=== PATIENT | male | born 1965 | race Caucasian/White ===

== ENCOUNTER 2019-05-14 07:22 | Day surgery (SDC) | payer BC ==
[2019-05-13 13:40] VITALS: BMI 27.1
[2019-05-14 13:31] VITALS: TEMP 97.7
[2019-05-14 13:33] VITALS: BP 131/87; PULSE 72
--- NOTE | 2019-05-17 16:49 | PATH ---
Surgical Pathology Report Patient Name: ASH LUGO [facility]. Rec. #: [id number] /Age/Gender: 1965 (Age: 53) / M Account: [id number] Location: [facility]-ENDOSCOPY Taken: 05/14/2019 Received: 05/14/2019 Reported: 05/17/2019 Physicians: Darryl Alanis M.D. Specimen(s) Received A: CECAL POLYPS B: ASCENDING COLON POLYP C: DESCENDING COLON POLYP Clinical History Colon cancer screening Postoperative diagnosis: Colonic polyps, hemorrhoids Final Diagnosis A. CECAL POLYPS, POLYPECTOMY: TUBULAR ADENOMA(S). B. ASCENDING COLON, POLYP, POLYPECTOMY: TUBULAR ADENOMA. C. DESCENDING COLON, POLYP, POLYPECTOMY: TUBULAR ADENOMA. Electronically Signed Isabell Adame M.D. Gross Description A. Received in formalin, labeled "cecal polyps x2" are 2 pereira, irregular portions of soft tissue measuring 0.2 and 0.3 cm. in greatest dimension. The specimens are submitted in toto in one cassette. B. Received in formalin labeled "ascending colon polyp," is a 0.7 x 0.5 x 0.3 cm pereira-brown, polypoid portion of soft tissue. The specimen is submitted in toto in one cassette. C. Received in formalin, labeled "descending colon polyp" is a pereira, irregular portion of soft tissue measuring 0.8 cm. in greatest dimension. The specimen is submitted in toto in one cassette. /05/14/2019 saudi05/14/2019
== END 2019-05-14 09:55 | disposition home or self-care (01) ==
LOC: JASU-ENDO 07:22
PROVIDERS: ATTEND Internal Medicine Gastroenterology
PROC: 0DBM8ZX Excision of Descending Colon, Via Natural or Artificial Opening Endoscopic, Diagnostic (ICD-10-PCS; 2019-05-14)
PROC: 0DBH8ZX Excision of Cecum, Via Natural or Artificial Opening Endoscopic, Diagnostic (ICD-10-PCS; 2019-05-14)
PROC: 0DBK8ZX Excision of Ascending Colon, Via Natural or Artificial Opening Endoscopic, Diagnostic (ICD-10-PCS; principal; 2019-05-14 08:00)
DX: Z12.11 Encounter for screening for malignant neoplasm of colon (principal); D12.0 Benign neoplasm of cecum; D12.2 Benign neoplasm of ascending colon; D12.4 Benign neoplasm of descending colon; K64.8 Other hemorrhoids
CPT/HCPCS: 88305-TC